=== PATIENT | female | born 1985 | race Caucasian/White ===

== ENCOUNTER 2016-11-09 06:09 | Inpatient (IN) | payer BC ==
[2016-11-09] MEDS ORDERED: Acetaminophen TAB* 325 MG PO PRN (16:19)
[2016-11-09] MEDS ORDERED: OXYTOCIN* 10 UNITS/ML 1 ML VIAL IM ONE (16:19)
[2016-11-09] MEDS ORDERED: Dibucaine 1% 28.35 GM TUBE PR PRN (16:19)
[2016-11-09] MEDS ORDERED: Witch Hazel PAD* JAR TOPICAL PRN (16:19)
[2016-11-09] MEDS: Docusate CAP* 100 MG PO SCH (21:08)
[2016-11-10] MEDS: Ibuprofen TAB* 600 MG PO PRN ×2 (00:28→08:26)
[2016-11-10 06:57] LABS: Hematocrit 29 % (35-47); Hemoglobin 9.8 g/dl (12.0-16.0); Mean Corpuscular HGB Conc 34 g/dl (31-36); Mean Corpuscular Hemoglobin 28 pg (27-31); Mean Corpuscular Volume 83 fL (80-97); Mean Platelet Volume 9 um3 (7.4-10.4); Red Blood Count 3.47 10^6/ul (4.0-5.4); Red Cell Distribution Width 15 % (10.5-15); White Blood Count 7.9 10^3/ul (3.5-10.8)
[2016-11-10] MEDS: Docusate CAP* 100 MG PO SCH ×2 (08:26→14:03)
[2016-11-10] MEDS ORDERED: Ferrous Gluconate TAB* 324 MG TAB PO SCH (09:00)
[2016-11-10] MEDS ORDERED: Phenylephrine IV* 40 MCG/ML 10 ML SYRINGE ONE (12:14)
[2016-11-10 15:53] VITALS: BP 104/63
== END 2016-11-10 17:01 | disposition home or self-care (01) | DRG 560 ==
LOC: MCHOBOUT 06:09 → MCHOB 07:21
PROVIDERS: ADMIT Nurse Practitioner; ATTEND Nurse Practitioner
PROC: 10E0XZZ Delivery of Products of Conception, External Approach (ICD-10-PCS; principal; 2016-11-09)
PROC: 10907ZC Drainage of Amniotic Fluid, Therapeutic from Products of Conception, Via Natural or Artificial Opening (ICD-10-PCS; 2016-11-09)
PROC: 0KQM0ZZ Repair Perineum Muscle, Open Approach (ICD-10-PCS; 2016-11-09)
PROC: 4A1HXCZ Monitoring of Products of Conception, Cardiac Rate, External Approach (ICD-10-PCS; 2016-11-09)
DX: O70.1 Second degree perineal laceration during delivery (principal); Z37.0 Single live birth; O90.81 Anemia of the puerperium; Z3A.39 39 weeks gestation of pregnancy
CPT/HCPCS: 36415; 85025; A9270-GY; J2590

== ENCOUNTER 2018-12-16 04:46 | Inpatient (IN) | payer BC ==
[2018-12-16] MEDS ORDERED: Lactated Ringers 1000 ML Bag* 1,000 ML IV ONE (05:49)
[2018-12-16] MEDS ORDERED: Buffered Lidocaine 1% SYRIN* 1 ML/SYRINGE INTRADERM ONE (05:49)
[2018-12-16] MEDS ORDERED: Lactated Ringers 1000 ML Bag* 1,000 ML IV SCH ×2 (06:00→08:00)
--- NOTE | 2018-12-16 06:05 | HP ---
General Information - Reason for Visit Patient reports rupture of membrane approx 0010. By 0330 contractions approx q 7 min and lasting up to 1 min. - General Information Maternal Age: 33 Grav: 3 Para: 2 SAB: 0 IEA: 0 Estimated Due Date: 12/08/18 Determined By: LMP Maternal Blood Type and Rh: A Positive - Results this Serology/RPR Result: Non-Reactive Rubella Result: Immune HBsAg Result: Negative HIV Result: Negative GBS Culture Result: Negative Past Medical History Delivery History: Hx Uncomplicated Vaginal Delivery - 01/2015, 10/2016 Pertinent Past Medical History: Non-Contributory Pertinent Past Surgical History: None Pertinent Family History: Non-Contributory - Antepartal Records Antepartal Records: Reviewed, Uncomplicated Review of Systems Constitutional: Uncomfortable CV Complaint: No Respiratory: Shortness of Breath: No Gastrointestinal: No Nausea/Vomiting, Normal Bowel Movement Genitourinary: Leaking Fluid, No Dysuria, No Bleeding Musculoskeletal: Contractions Neurological: No Headache, No Visual Changes Movement: Normal Exam Allergies/Adverse Reactions: Allergies No Known Allergies Allergy (Verified 01/16/15 13:44) BP 137/78 T 98.1 HR 64 RR 18 O2 100 - Measurements Height: 5 ft 5 in Weight: 146 lb Weight in lbs: [id number] Body Mass Index (BMI): 24.3 Pre- Weight: 118 lb Weight Gained This : 28 lbs and 0 ozs - Exam Breast: Breast Exam Deferred CVA: No CVA Tenderness Extremities: No Edema Heart: Normal Rhythm/Heart Sounds HEENT: No Significant Findings Lungs: Clear Bilaterally Rectal: Rectal Exam Deferred Reflexes: - - DTR +1, no clonus Thyroid: - - WNL @ entry to care - Abdominal Exam Abdomen Exam: Non-Tender, Fundal Height Consistent with Dates - Ultrasound/Biophysical Profile Ultrasound Status: Not Done Targeted Exam Findings Estimated Weight: 7.5lb Cervical Exam: 7cm, 8cm Effacement: 100% Station: 0 Presenting Part: Vertex Membrane Status: SROM Amniotic Fluid Evaluation: Gross Rupture Bleeding/Discharge: Bloody Show EFM Findings - External Monitor Findings Baseline Heart Rate: 120 External Monitor Findings: Accelerations Present, Variability Moderate Contractions: Regular, Moderate, 45-90 Seconds Contraction Frequency: Q4 min Assessment/Plan - Assessment IUP @ 41+1 weeks gestation in active labor. Spontaneous rupture of membranes. No evidence acidemia - Plan Plan: Admit - Anticipate Vaginal Delivery Plan Comment: Admit to L&D. PARQ discussion and patient desires nitrous oxide. Anticipate SVB. - Date/Time of Admission Date of Admission: 12/16/18 Time of Admission: 05:37
[2018-12-16] MEDS ORDERED: Acetaminophen TAB* 325 MG PO PRN (07:13)
[2018-12-16] MEDS ORDERED: Glycerin ADULT SUPP PR PRN (07:13)
[2018-12-16] MEDS ORDERED: Dibucaine 1% 28.35 GM TUBE PR PRN (07:13)
[2018-12-16] MEDS ORDERED: Witch Hazel PAD* JAR TOPICAL PRN (07:13)
[2018-12-16] MEDS: Docusate CAP* 100 MG PO SCH ×3 (08:16→20:25)
[2018-12-16] MEDS: Ibuprofen TAB* 600 MG PO PRN ×2 (08:16→17:43)
--- NOTE | 2018-12-16 08:16 | PROCNOTE ---
[facility] OB: Delivery Note - Delivery A Date of : 12/16/18 Time of : 06:45 [place] Sex: Male Weight at : 9 lb 10 oz Score 1 Minute: 8 Score 5 Minutes: 9 Gestational Age in Weeks and Days at Delivery: 41 Weeks and 1 Days Delivery Method: Spontaneous Vaginal Labor: Spontaneous Did Patient attempt ?: N/A, No Previous Amniotic Fluid: Clear Estimated Blood Loss: 250 Anesthesia/Analgesia: None Delivered By: Pio Stein - Nursery Level of Nursery: Regular/Bedside - Perineum Perineal Injury: Abrasion Only - Not Repaired - Events Delivery Events of Note: None Apply - Additional Delivery Notes Additional Delivery Notes: IUP @ 41+1 weeks gestation. Patient admitted in spontaneous active labor after rupture of membranes at home. She requested and received nitrous oxide for pain management. Quick progression to complete with urge to push. LOL 2'51", pushed 20 min. Baby born OA to JUSTUS at 0645, shoulders following with strong maternal efforts. Baby to maternal abdomen with spontaneous cry, HR >110. Apgars 8, 9. Cord doubly clamped and cut by FOB once pulsations ceased. Placenta delivered with Schultze presentation with gentle cord traction @ 0651. 3VC noted and membranes appear intact. Fundus firm to massage. EBL 250ml. Baby at breast to initiate . Mother and baby stable. Baby name TBD.
[2018-12-16] MEDS ORDERED: Lidocaine 1% INJ* 10 MG/ML 30 ML SDV ONE (09:40)
[2018-12-17] MEDS: Ibuprofen TAB* 600 MG PO PRN ×2 (02:55→10:24)
[2018-12-17 06:43] LABS: ABS Basophils 0 10^3/ul (0-0.2); ABS Eosinophils 0 10^3/ul (0-0.6); ABS Lymphocytes 1.6 10^3/ul (1.0-4.8); ABS Monocytes 0.5 10^3/ul (0-0.8); ABS Neutrophils 6.5 10^3/ul (1.5-7.7); ABS Nucleated RBC 0 10^3/ul; Eosinophil % 0.3 %; Hematocrit 26 % (35-47); Hemoglobin 8.4 g/dl (12.0-16.0); Lymphocyte % 18.4 %; Mean Corpuscular HGB Conc 33 g/dl (31-36); Mean Corpuscular Hemoglobin 26 pg (27-31); Mean Corpuscular Volume 78 fL (80-97); Mean Platelet Volume 7.9 fL (7.4-10.4); Nucleated Red Blood Cells % 0; Platelet Count 187 10^3/ul (150-450); Red Blood Count 3.29 10^6/ul (4.00-5.40); Red Cell Distribution Width 15 % (10.5-15); White Blood Count 8.6 10^3/ul (3.5-10.8)
[2018-12-17 08:05] VITALS: BP 104/58
[2018-12-17] MEDS ORDERED: Ferrous Gluconate TAB* 324 MG TAB PO SCH (09:00)
[2018-12-17] MEDS: Docusate CAP* 100 MG PO SCH (10:24)
== END 2018-12-17 11:24 | disposition home or self-care (01) | DRG 560 ==
LOC: MCHOBOUT 04:46 → MCHOB 05:37
PROVIDERS: ADMIT Midwife; ATTEND Midwife
PROC: 10E0XZZ Delivery of Products of Conception, External Approach (ICD-10-PCS; principal; 2018-12-16)
PROC: 4A1HXCZ Monitoring of Products of Conception, Cardiac Rate, External Approach (ICD-10-PCS; 2018-12-16)
DX: O48.0 Post-term pregnancy (principal); Z37.0 Single live birth; Z3A.41 41 weeks gestation of pregnancy; O90.81 Anemia of the puerperium; O71.82 Other specified trauma to perineum and vulva
CPT/HCPCS: 36415; 85025; A9270-GY

== ENCOUNTER 2021-03-17 16:17 | Inpatient (IN) ==
[2021-03-17] MEDS ORDERED: Buffered Lidocaine 1% SYRIN 1 ml INTRADERM ONE ×2 (17:09→17:30)
[2021-03-17] MEDS ORDERED: Lactated Ringers 1000 ml BAG 1,000 ML IV ONE (17:30)
[2021-03-17] MEDS ORDERED: Penicillin G Potassium IV 3,000,000 UNITS in NS 0.9% 100 ml BAG 100 ML IVPB SCH (18:00)
[2021-03-17] MEDS ORDERED: Lactated Ringers 1000 ml BAG 1,000 ML IV SCH (18:00)
[2021-03-17] MEDS ORDERED: Penicillin G Potassium IV 5,000,000 UNITS in NS 0.9% 100 ml BAG 100 ML IVPB ONE (18:00)
[2021-03-17 18:05] LABS: ABS Lymphocytes 1.6 10^3/ul (1.0-4.8); ABS Monocytes 0.6 10^3/ul (0-0.8); ABS Neutrophils 8.2 10^3/ul (1.5-7.7); Eosinophil % 0.2 %; Hematocrit 32 % (35-47); Hemoglobin 11.1 g/dL (12.0-16.0); Mean Corpuscular HGB Conc 35 g/dL (31-36); Mean Corpuscular Hemoglobin 30 pg (27-31); Mean Corpuscular Volume 85 fL (80-97); Mean Platelet Volume 9.3 fL (7.4-10.4); Platelet Count 175 10^3/uL (150-450); Red Blood Count 3.75 10^6 /uL (3.70-4.87); Red Cell Distribution Width 17 % (10-15); White Blood Count 10.4 10^3/uL (3.5-10.8)
[2021-03-17 18:49] LABS: Urine Benzodiazepine Screen None Detected (None Detect); Urine Cannabinoids Screen None Detected (None Detect); Urine Opiates Screen None Detected (None Detect)
[2021-03-17] MEDS: Penicillin G Potassium IV 3,000,000 UNITS in NS 0.9% 100 ml BAG 100 ML IVPB SCH (22:05)
[2021-03-18] MEDS ORDERED: Witch Hazel PAD JAR TOPICAL PRN (00:16)
[2021-03-18] MEDS ORDERED: Dibucaine 1% OINT 28.35 GM TUBE PR PRN (00:16)
[2021-03-18] MEDS ORDERED: Glycerin ADULT 2.4 gm SUPP PR PRN (00:16)
[2021-03-18] MEDS: Oxytocin in LR 20 UNITS/1,000 ML BAG IVPB ONE ×2 (00:25→02:26)
[2021-03-18] MEDS ORDERED: Oxytocin in LR 20 UNITS/1,000 ML BAG IVPB SCH (01:00)
[2021-03-18] MEDS ORDERED: Lactated Ringers 1000 ml BAG 1,000 ML IV SCH (01:00)
[2021-03-18] MEDS: Penicillin G Potassium IV 3,000,000 UNITS in NS 0.9% 100 ml BAG 100 ML IVPB SCH (02:24)
[2021-03-18 08:06] LABS: ABS Lymphocytes 1.1 10^3/ul (1.0-4.8); ABS Monocytes 0.6 10^3/ul (0-0.8); ABS Neutrophils 11.8 10^3/ul (1.5-7.7); Hematocrit 27 % (35-47); Hemoglobin 9.5 g/dL (12.0-16.0); Lymphocyte % 8.2 %; Mean Corpuscular HGB Conc 35 g/dL (31-36); Mean Corpuscular Hemoglobin 29 pg (27-31); Mean Corpuscular Volume 84 fL (80-97); Mean Platelet Volume 8.8 fL (7.4-10.4); Platelet Count 134 10^3/uL (150-450); Red Blood Count 3.23 10^6 /uL (3.70-4.87); Red Cell Distribution Width 17 % (10-15); White Blood Count 13.5 10^3/uL (3.5-10.8)
[2021-03-18] MEDS ORDERED: Tetan/Diph/Pertus SYR(Tdap) 0.5 ML SYR(BOOSTRIX) use SYR contains LATEX IM ONE (09:00)
[2021-03-19 08:06] VITALS: BP 103/55
== END 2021-03-19 17:28 | disposition home or self-care (01) ==
LOC: MCHOBOUT 16:17 → MCHOB 17:18
PROVIDERS: ADMIT Midwife; ATTEND Midwife